=== PATIENT | female | born 1970 | race Caucasian/White ===

== ENCOUNTER 2016-12-10 07:08 | Emergency (ER) | payer OTHER ==
[2016-12-10 07:30] VITALS: BP 122/73; PULSE 65; RESP 16; TEMP 97.5; O2SAT 95
[2016-12-10 07:35] LABS: COLOR YELLOW; LEUKOCYTE ESTERASE,URINE NEGATIVE (NEGATIVE); NITRITE,URINE POSITIVE (NEGATIVE)
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
[2016-12-10] MEDS ORDERED: IBUPROFEN 200 MG TAB PO ONE (07:52)
[2016-12-10 07:56] LABS: WBC,URINE 0-1 /hpf (0-3)
[2016-12-10 07:57] LABS: BACTERIA 2+ /hpf (NONE SEEN); RBC,URINE 0-1 /hpf (0-3)
== END 2016-12-10 08:15 | disposition home or self-care (01) ==
LOC: CED 07:08
DX: N30.90 Cystitis, unspecified without hematuria (principal); K59.00 Constipation, unspecified; K92.1 Melena
CPT/HCPCS: 81003-PO; 81015-PO; 82270-PO; 99203-PO; G0463-PO

== ENCOUNTER → 2017-05-01 | Outpatient (CLI) | payer OTHER | LOC: FIMAGING 08:19 | DX: Z12.31 Encounter for screening mammogram for malignant neoplasm of breast (principal) | CPT/HCPCS: G0202 ==

== ENCOUNTER → 2018-06-04 | Outpatient (CLI) | payer OTHER | LOC: FIMAGING 14:39 | PROVIDERS: ATTEND Nurse Practitioner Adult Health | DX: Z12.31 Encounter for screening mammogram for malignant neoplasm of breast (principal) ==

== ENCOUNTER → 2018-09-11 | Outpatient (CLI) | payer OTHER | LOC: BMCIMAGING 14:52 | PROVIDERS: ATTEND Internal Medicine | DX: M79.641 Pain in right hand (principal); M79.89 Other specified soft tissue disorders ==